=== PATIENT | male | born 1995 | race Caucasian/White ===

== ENCOUNTER 2025-01-27 07:15 | Emergency (ER) | payer BC, SELFPAY ==
--- NOTE | ~2025-01-27 | XR_ITS ---
XR lumbar spine 2-3V 01/27/2025 07:51 Indication: Low back pain Procedure: 3 views lumbar spine Comparison: No prior studies for comparison. Findings: No fracture, subluxation or dislocation. There is mild disc narrowing at L3-4, L4-5 and L5- S1. No evidence for spondylolisthesis. Pedicles intact. Sacral foramen are symmetric. Impression: 1: Mild lumbar spondylosis. Reviewed, dictated and finalized at location A. Impression: 1: Mild lumbar spondylosis.
[2025-01-27 07:19] VITALS: BP 154/95; PULSE 75; RESP 16; TEMP 36.8; O2SAT 98
[2025-01-27] MEDS: SODIUM CHLORIDE 0.9% IV 1,000 ML 999 ML IV CONT (07:30)
[2025-01-27] MEDS: diazePAM INJ (*CRX) 10 MG/2 ML SYRINGE 5 MG IV PUSH (07:30)
[2025-01-27] MEDS: KETOROLAC 30 MG/ML VIAL (*BKC) IV PUSH (07:30)
--- OUTSIDE RECORDS SUMMARY | 2025-01-27 07:37 | XMS_ITS | Clinical Summary ---
Author Organization [facility] Address [address] [place] [address] Phone Care Team Providers Care Pin Setter Name Role Phone Unavailable Primary Care Provider Unavailabl e Allergies No known active allergies Medications propranoloL (INDERAL) 10 mg tablet Take 1 Tablet (10 mg) by mouth 2 times daily. 60 Tablet 1 04/20/2021 6:23 PM CDT 04/20/2021 Active hydrOXYzine HCL (ATARAX) 25 mg tablet Take 1 Tablet (25 mg) by mouth 3 times daily as needed for Anxiety. 21 Tablet 04/20/2021 6:23 PM CDT 04/20/2021 Active Social History Tobacco Use Types Packs/Day Years Used Date Smoking Tobacco: Light Smoker Smokeless Tobacco: Never Alcohol Use Standard Drinks/Week Comments Yes 0 (1 standard drink = 0.6 oz pur e alcohol) social Sex and Gender Information Value Date Recorded Sex Assigned at Not on file Legal Sex Male 10:12 PM CDT Gender Identity Not on file Sexual Orientation Not on file Last Filed Vital Signs Vital Sign Reading Time Taken Comments Blood Pressure 138/78 04/20/2021 6:12 PM CDT Pulse 74 04/20/2021 6:12 PM CDT Temperature 37.1 C (98.7 F) 04/20/2021 6:12 PM CDT Respiratory Rate 18 04/20/2021 6:12 PM CDT Oxygen Saturation 97% 04/20/2021 6:12 PM CDT Inhaled Oxygen Concentration - - Weight 99.8 kg (220 lb) 04/20/2021 4:30 PM CDT Height 190.5 cm (6' 3) 04/20/2021 4:30 PM CDT Body Mass Index 27.5 04/20/2021 4:30 PM CDT Plan of Treatment Health Maintenance Due Date Last Done Comments DTAP/TDAP/TD VACCINES (1 - Tdap) 2016 HEPATITIS B VACCINES (1 of 3 - 19+ 3-dose series) 2016 INFLUENZA VACCINE (#1) 2024 HPV VACCINES Aged Out No longer eligi ble based on patient's age to complete this topic Insurance FED[employer]AL RX [facility] [employer]
--- OUTSIDE RECORDS SUMMARY | 2025-01-27 07:37 | XMS_ITS | Clinical Summary ---
Author Organization [facility] Address [address] [place] [address] Care Team Providers Care Consumer Safety Officer Name Role Phone Bela Reno MD Primary Care Provider [phone] Source Comments [facility],non-owned Affiliates and Associated Physician Practices is amultiple site organization consisting of ambulatory clinics and hospital sitesin [place], [place], [place] and [place]. This disclosure is being madepursuant to the Care Everywhere program and may not contain all information available regarding this patient. Last updated 18.[facility] Allergies No known active allergies Medications * Be aware that medications may not be up to date on this document. Alwaysverify current medications with the patient. 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 Gender Identity Not on file Sexual Orientation Not on file Plan of Treatment Health Maintenance Due Date Last Done Comments HIV SCREENING 2012 HEPATITIS C SCREENING 04/10/2015 DTAP/TDAP/TD VACCINES (1 - Tdap) 2016 HEPATITIS B VACCINE (1 of 3 - 19+ 3-dose series) 2016 COVID-19 VACCINE ( - 2023-2 5 season) 2024 DEPRESSION SCREENING 08/30/2024 INFLUENZA VACCINE (Season Ended) 2025 ZOSTER VACCINE (1 of 2) 2047 HIB VACCINE Aged Out No longer eligi ble based on patient's age to complete this topic HPV VACCINE Aged Out No longer eligi ble based on patient's age to complete this topic MENINGOCOCCAL (Group B) VACC INE SHARED DECISION-MAKING Aged Out No longer eligibl e based on patient's age to complete this topic MENINGOCOCCAL GROUPS A/C/Y/W VACCINE Aged Out No longer eligible b ased on patient's age to complete this topic PNEUMOCOCCAL VACCINE Aged Out No long er eligible based on patient's age to [place] [address] [place] [address] ANTHABIEL Member Subscriber Plan / Payer (Ef fective for All Dates) Name:Cierra Hussain Kaiser Relation to Subscriber:Child Name:DORON CAROLNIA Date of :1970 (Home) Address: [address] [place] [address] [place] [address] Payer ID:[id number] (NAIC) Group ID:Not on file Type:PPO Address: [id number] Care Teams Consumer Safety Officer Relationship Specialty Start Date End Date Bela Reno MD [address] [place] [address] PCP - General 11/14/09
--- OUTSIDE RECORDS SUMMARY | 2025-01-27 07:37 | XMS_ITS | Referral Summary ---
Author Organization [facility] Address [address] [place] [address] Care Team Providers Care Od Grinder Operator Name Role Phone No, Physician Primary Care Provider [phone] Allergies No known active allergies Medications hydrOXYzine (ATARAX) 25 mg tablet Take 1 tablet (25 mg total) by mouth 3 (three) times a day as needed 04/20/2021 Active propranoloL (INDERAL) 10 mg tablet Take 1 tablet (10 mg total) by mouth 2 (two) times a day 04/20/2021 Active ALPRAZolam (XANAX) 0.25 mg tablet Take 1 tablet (0.25 mg total) by mouth daily as needed 05/22/2022 Active lamoTRIgine (LaMICtal) 100 mg tablet Take 1 tablet (100 mg total) by mouth daily 06/19/2022 Active lisinopriL (PRINIVIL,ZESTRI L) 10 mg tablet Take 1 tablet (10 mg total) by mouth daily 06/19/2022 Active Active Problems Problem Noted Date Diagnosed Date Substance abuse 07/19/2014 Fatigue 07/06/2013 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 Immunizations Immunization Administration Dates Next Due Influenza, Quadrivalent, Spl it, Preservative Free, Intramuscular 05/22/2022 Influenza, Trivalent, Preservative Free, Intramu scular 10/15/2017 Td, adsorbed 04/13/2023 Social History Tobacco Use Types Packs/Day Years Used Date Smoking Tobacco: Former Smokeless Tobacco: Never Personal Safety Answer Date Recorded Getting School Help Needed Not on file 08/15 Sex and Gender Information Value Date Recorded Sex Assigned at Not on file 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 Gender Identity Not on file Sexual Orientation Not on file Last Filed Vital Signs Vital Sign Reading Time Taken Comments Blood Pressure 139/84 04/13/2023 7:53 PM CDT Pulse 95 04/13/2023 7:53 PM CDT Temperature 36.8 C (98.2 F) 04/13/2023 7:53 PM CDT Respiratory Rate 16 04/13/2023 7:53 PM CDT Oxygen Saturation 96% 04/13/2023 7:53 PM CDT Inhaled Oxygen Concentration - - Weight 120.2 kg (265 lb) 04/13/2023 7:53 PM CDT Height 190.5 cm (6' 3) 04/13/2023 7:53 PM CDT Body Mass Index 33.12 04/13/2023 7:53 PM CDT Plan of Treatment Not on file Insurance [facility] Pay[employer] Care Teams Od Grinder Operator Relationship Specialty Start Date End Date No, Physician PCP - General 09/12/21
--- OUTSIDE RECORDS SUMMARY | 2025-01-27 07:37 | XMS_ITS | Clinical Summary ---
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 Gender Identity Not on file Sexual Orientation Not on file Plan of Treatment Health Maintenance Due Date Last Done Comments Hepatitis C Virus (HCV) Screening 1997 TdaP Immunization 1997 Human Papillomavirus (HPV) Immunization (1 - Male 3-dose series) 2012 Hepatitis B Immunization (1 of 3 - 19+ 3-dose series) 2016 Influenza Immunization (#1) 2024 SARS-COV-2 Immunization ( - season) 2024 Respiratory Syncytial Virus (RSV) Immunization (Adult) (1 - 1-dose 75+ series) 2072 Meningococcal Immunization (ACWY) Aged Out No longer eligible based on patient's age to complete this topic Pneumococcal Immunization Combined Aged Out No longer eligible based on patient's age to complete this topic Rotavirus Immunization Aged Out No lo nger eligible based on patient's age to complete this topic Insurance [employer] on file
--- OUTSIDE RECORDS SUMMARY | 2025-01-27 07:37 | XMS_ITS | Clinical Summary ---
Author Organization [facility] Address [address] [place] [address] Care Team Providers Care Varnish Cooker Name Role Phone No, Physician Primary Care Provider [phone] Allergies No known active allergies Medications hydrOXYzine [...] Free, Intramu scular 10/15/2017 Td, adsorbed 04/13/2023 Surgical History Surgery Date Site/Laterality Comments TONSILLECTOMY Medical History Medical History Date Comments Anxiety Family History Medical History Relation Name Comments Alcohol abuse Father Family history of alcoholism - (Added by TW Conv) Mental illness Mother Chronic menta l illness - (Added by TW Conv) Relation Name Status Comments Father Mother Social History Tobacco Use Types Packs/Day Years Used Date Smoking Tobacco: Former Smokeless Tobacco: Never Personal Safety Answer Date Recorded Getting School Help Needed Not on file 08/15 Sex and Gender Information Value Date Recorded Sex Assigned at Not on file 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 Gender Identity Not on file Sexual Orientation Not on file Obstetrics History Last Filed Vital Signs Vital Sign Reading [...] 04/13/2023 7:53 PM CDT Plan of Treatment Health Maintenance Due Date Last Done Comments Depression Screening 1997 Hepatitis C Screening 1997 Varicella Vaccines (1 of 2 - 13+ 2-dose series) 2010 Hepatitis B Screening 2015 Regular Well Visit/Exam 18-64 2015 DTaP/Tdap/Td Vaccine (1 - Tdap) 2023 04/13/2023 Covid-19 Vaccine (3 - 2023-2 5 season) 2024 02/12/2021, 01/22/2021 Influenza Vaccine (Season Ended) 2025 05/22/2022, 10/15/2017 HPV Vaccines Aged Out No longer eligi ble based on patient's age to complete this topic Pneumococcal vaccine <65 Aged Out No longer eligible based on patient's age to complete this topic Insurance [facility] [employer] [place] Care Teams Varnish Cooker Relationship Specialty Start Date End Date No, Physician PCP - General 09/12/21
--- NOTE | 2025-01-27 08:56 | ED.BACK ---
HPI - Back Pain/Injury General Chief Complaint: Back Pain/Injury Stated Complaint: back pain after playing golf yesterday Time Seen by Provider: 01/27/25 07:16 History of Present Illness HPI Narrative: Patient is a 29-year-old male who presents ER with low back pain. [place] is [place] the driving range hitting golf balls when he felt some low back discomfort last night. The pain continued to increase and then became severe right is he is going bed where he cannot get back up. He took some ibuprofen last night symptoms have persisted and he has been unable to get out of bed. No numbness or tingling in the lower extremities. No saddle anesthesia. Came to the ER by EMS receive morphine 8 mg the medics. Related Data Allergies Allergy/AdvReac Type Severity Reaction Status Date / Time cefprozil (From Cefzil) Allergy Mild Rash Verified 01/27/25 10:06 Review of Systems Review of Systems: All systems reviewed & are unremarkable except as noted in HPI and below Constitutional: Constitutional: Reports no additional constitutional complaints Genitourinary: Genitourinary: Reports no additional male genitourinary complaints Musculoskeletal: Musculoskeletal: Reports no additional musculoskeletal complaints Neurologic: Reports system reviewed and no additional complaints, except as documented PMFSH Past Medical History Medical History (Updated 01/27/25 @ 11:42 by Nino Perdomo MD) Healthy adult male Exam Narrative: GENERAL: Well-appearing, well-nourished, and in no acute distress. HEAD: Normocephalic, atraumatic. ENT: Mucous membranes moist. CHEST: Clear to auscultation. No respiratory distress. HEART: Regular rate and rhythm. Normal peripheral pulses. Back: Tenderness over the L5/S1 region bilaterally and not so much midline. No step-offs. EXTREMITIES: Normal range of motion. No edema. SKIN: Warm, dry, no rash. NEURO: No focal deficits. Alert and oriented x3. PSYCH: Normal mood and affect. Course Course Emergency Course: Patient received Toradol and Valium as well as IV fluid. He is given oral cyclobenzaprine. Able to get up and walk. Imaging without fracture. Discussed discharge planning. Vital Signs Vital signs: Vital Signs Temperature 98.2 F 01/27/25 07:19 Pulse Rate 75 01/27/25 07:19 Respiratory Rate 16 01/27/25 07:19 Blood Pressure 154/95 H 01/27/25 07:19 Pulse Oximetry 98 01/27/25 07:19 Temperature 98.2 F 01/27/25 07:19 Pulse Rate 85 01/27/25 09:17 Respiratory Rate 16 01/27/25 09:17 Blood Pressure 139/86 01/27/25 09:17 Pulse Oximetry 99 01/27/25 09:17 MDM - Back Pain/Injury Imaging Data Radiologist's impression: ITS Impressions Lumbar Spine X-Ray 01/27/25 07:55 Impression: 1: Mild lumbar spondylosis. Discharge Plan Discharge Clinical Impression: Strain of lumbar region Patient Disposition: Home Condition: Stable Instructions: Acute Low Back Pain (ED) Additional Instructions: Please return to the emergency department if you develop severe pain that is not controlled by pain medications or if you are unable to walk because of pain or weakness. Return to the emergency department immediately if you develop fevers, loss of bowel or bladder control (dribbling of urine or having accidents you wouldn't normally have), inability to urinate, numbness of your genital or anal area, or weakness/numbness of your legs or arms as these could all be signs of a serious medical emergency. Patient Language: Serbian Prescriptions: New methylprednisolone [Medrol (Naveed)] 4 mg tablets,dose pack See Rx Instructions .ROUTE .COMPLEX Qty: 21 0RF Rx Instructions: for 6 days cyclobenzaprine 10 mg tablet 10 mg PO TID PRN (Reason: muscle spasm) Qty: 20 0RF Follow-up/Referrals: Marilyn,MD Raj [Primary Care Provider] - 1 Week
[2025-01-27 09:17] VITALS: BP 139/86; PULSE 85; RESP 16; O2SAT 99
[2025-01-27] MEDS: CYCLOBENZAPRINE HCL 10 MG TABLET PO (10:51)
[2025-01-27 12:25] VITALS: BP 131/71; PULSE 89; RESP 16; O2SAT 98
== END 2025-01-27 12:30 | disposition home or self-care (01) ==
PROVIDERS: Emergency Provider Emergency Medicine; PCP Internal Medicine
DX: S39.012A Strain of muscle, fascia and tendon of lower back, initial encounter (principal); X50.0XXA Overexertion from strenuous movement or load, initial encounter
CPT/HCPCS: 72100; 96361; 96374; 96375; 99284; A9270; J1885; J3360; J7030